=== PATIENT | female | born 2000 | race Hispanic/Latino ===

== ENCOUNTER 2024-09-19 16:39 | Emergency (ER) | payer OTHER ==
[~2024-09-19] VITALS: Ht 170.2 cm; Wt 56.9 kg
[2024-09-19 17:13] LABS: CORONAVIRUS COVID-19 AG NEGATIVE (NEGATIVE); INFLUENZA A AG NEGATIVE (NEGATIVE); INFLUENZA B AG NEGATIVE (NEGATIVE)
[2024-09-19] MEDS ORDERED: CYCLOBENZAPRINE10 MG PO (19:51)
[2024-09-19] MEDS ORDERED: NASAL DECONGEST30 MG PO (19:51)
[2024-09-19] MEDS ORDERED: CYCLOBENZAPRINE HCL 10 MG TAB PO ONE (20:00)
[2024-09-19] MEDS ORDERED: PSEUDOEPHEDRINE HCL 30 MG TAB PO ONE (20:00)
[2024-09-19 20:06] VITALS: BP 117/79
== END 2024-09-19 20:10 | disposition home or self-care (01) ==
LOC: ED 16:39
PROVIDERS: Emergency Medicine
DX: B34.9 Viral infection, unspecified (principal)
CPT/HCPCS: 36415; 99283; A9270